=== PATIENT | female | born 2000 ===

== ENCOUNTER → 2018-02-08 | Outpatient (CLI) | payer BC ==
--- NOTE | 2018-02-08 12:17 | DIAGNOSTIC IMAGING REPORT ---
R KNEE 4 OR MORE CLINICAL HISTORY: 17 years-old Female presenting with RIGHT KNEE PAIN. TECHNIQUE: Frontal, sunrise, tunnel, and lateral views of the right knee were obtained. COMPARISON: None. FINDINGS: Knee joint congruent. No patellar subluxation. Large knee joint effusion. No acute fracture or malalignment. No advanced degenerative change. IMPRESSION: 1. No acute osseous injury. 2. Large knee joint effusion. Suspected underlying soft tissue injury. MR would better characterize this. Electronically signed by: Ken Lugo M.D. 02/08/2018 12:16 PM Dictated Date/Time: 02/08/2018 12:14 PM
== END | disposition home or self-care (01) ==
LOC: C.RDSM 11:32
PROVIDERS: ATTEND Family Medicine
DX: M25.561 Pain in right knee (principal); M25.461 Effusion, right knee